=== PATIENT | male | born 1940 | race Two or more races ===

== ENCOUNTER → 2018-08-14 | Emergency (ER) | payer OTHER ==
[~2018-08-14] VITALS: Ht 165.1 cm; Wt 63.5 kg
[~2018-08-14] MED LIST: CARDURA1 MG; CARVEDILOL3.125 MG; CRESTOR40 MG; HYDRODIURIL12.5 MG; LIPITOR40 MG; PLAVIX75 MG; PREVACID 15MG15 MG GT; PROCARDIA90 MG/BLIS; TRICOR145 MG
== END | disposition home or self-care (01) ==
LOC: ER 21:28
DX: R51 Headache (principal)

== ENCOUNTER → 2019-01-11 | Outpatient (CLI) | payer OTHER | END | disposition home or self-care (01) | LOC: NUCLEAR 10:00 | DX: R55 Syncope and collapse (principal) ==

== ENCOUNTER 2019-03-31 16:09 | Emergency (ER) | payer OTHER ==
[~2019-03-31] VITALS: Ht 165.1 cm; Wt 64.4 kg
== END 2019-03-31 21:48 | disposition home or self-care (01) ==
LOC: ER 16:09
DX: J40 Bronchitis, not specified as acute or chronic (principal); J06.9 Acute upper respiratory infection, unspecified

== ENCOUNTER 2020-10-29 08:06 | Emergency (ER) | payer OTHER ==
[~2020-10-29] VITALS: Ht 165.1 cm; Wt 63.5 kg
[2020-10-29] MEDS ORDERED: CHILDREN'S ASPI81 MG (08:21)
== END 2020-10-29 12:51 | disposition home or self-care (01) ==
LOC: ER 08:06
DX: R42 Dizziness and giddiness (principal); M54.2 Cervicalgia; R20.0 Anesthesia of skin

== ENCOUNTER 2022-03-11 07:45 | Outpatient (CLI) | payer OTHER ==
[~2022-03-11 07:45] MED LIST changes: +CHILDREN'S ASPI81 MG
== END 2022-03-11 07:46 | disposition home or self-care (01) ==
LOC: NUCLEAR 07:45
PROVIDERS: ATTEND Internal Medicine
DX: I65.23 Occlusion and stenosis of bilateral carotid arteries (principal)

== ENCOUNTER 2022-10-28 08:45 | Outpatient (CLI) | payer OTHER | END 2022-10-28 08:48 | disposition home or self-care (01) | LOC: SONOGRAMA 08:45 | PROVIDERS: ATTEND Urology | DX: N40.1 Benign prostatic hyperplasia with lower urinary tract symptoms (principal) ==

== ENCOUNTER → 2023-03-16 06:34 | Outpatient (CLI) | payer OTHER ==
[2023-03-16 07:59] LABS: HEMATOCRIT 42.1 % (39.0-48.0); MEAN CELL VOLUME 87.7 fL (80.0-100.00); MEAN CORPUSCULAR HEMOGLOBIN 29.3 pg (27.00-32.0); MEAN CORPUSCULAR HGB CONC 33.4 g/dl (32.0-36.0); PLATELET COUNT 326 K/uL (150-450); RED CELL DISTRIBUTION WIDTH 15.7 % (11.5-14.5)
[2023-03-16 08:33] LABS: CALCIUM 9.5 mg/dL (8.5-10.1); CREATININE SERUM 1.15 mg/dL (0.70-1.30); GFR 61.19; POTASSIUM 4.71 mEq/L (3.5-5.1)
== END | disposition home or self-care (01) ==
LOC: LAB 06:34
PROVIDERS: ATTEND Internal Medicine Cardiovascular Disease
DX: I11.9 Hypertensive heart disease without heart failure (principal)

== ENCOUNTER → 2023-12-05 11:33 | Outpatient (CLI) | payer OTHER ==
[2023-12-05 12:23] LABS: PH,URINE 5.5 (5.0-8.0); URINE APPEARANCE Clear; URINE BILIRRUBIN Negative (NEGATIVE); URINE BLOOD Negative; URINE COLOR Yellow; URINE GLUCOSE Negative (NEGATIVE); URINE KETONE Negative (NEGATIVE); URINE LEUKOCYTE Negative; URINE NITRATE Negative; URINE PROTEIN Negative (NEGATIVE)
[2023-12-05 12:26] LABS: URINE BACTERIA 11.3 uL (0.0-1933); URINE EPITHELIAL CELLS 2.6 uL (0.0-38.8); URINE RBC 7.7 uL (0.0-20.8); URINE WBC 2.3 uL (0.0-23.2)
== END | disposition home or self-care (01) ==
LOC: LAB 11:33
PROVIDERS: ATTEND Specialist
DX: N39.9 Disorder of urinary system, unspecified (principal)

== ENCOUNTER 2023-12-09 13:24 | Outpatient (CLI) | payer OTHER | END 2023-12-09 13:45 | disposition home or self-care (01) | LOC: MRI 13:24 | PROVIDERS: ATTEND Specialist | DX: S73.199A Other sprain of unspecified hip, initial encounter (principal); M24.159 Other articular cartilage disorders, unspecified hip | CPT/HCPCS: 73721 ==

== ENCOUNTER 2025-02-09 11:04 | Inpatient (IN) | payer OTHER ==
[~2025-02-09] VITALS: Ht 165.1 cm; Wt 63.5 kg
[2025-02-09] MEDS ORDERED: ZETIA10 MG PO (11:21)
[2025-02-09] MEDS ORDERED: ELIQUIS2.5 MG PO (11:21)
[2025-02-09] MEDS ORDERED: TOPROL XL25 M1 PO (11:21)
--- NOTE | 2025-02-09 11:21 | NUR ---
PTE. REFIERE DEBILIDAD GENERALIZADA, MAREOS Y NAUSEAS. SE REALIZA EKG Y SE PRESENTA A MEDICO DE TURNO.
--- NOTE | 2025-02-09 13:46 | NUR ---
SE ORIENTA A FAMILIAR SOBRE [place] MEDICO, REFIERE ENTENDER. SE REALIZAN MUESTRAS DE LABORATORIO BAJO MEDIDAS ASEPTICAS. PENDIENTE RE-EVALUACION MEDICA. PACIENTE MANEJADO POR .
[2025-02-09 14:11] LABS: BASO % 0.2 % (0.1-1.2); EOS # 0.03 (0.04-0.54); EOS % 0.2 % (0.7-7.0); LYMPH # 1.06 (1.18-3.74); LYMPH % 8.7 % (19.3-53.1); MEAN PLATELET VOLUME 10.00 fl (9.4-12.4); MONO # 0.86 (0.24-0.82); MONO % 7.1 % (4.7-12.5); NEUT # 10.11 (1.56-6.13); NEUT % 83.4 % (34.0-71.1); RED CELL DISTRIBUTION WIDTH 14.9 % (11.6-14.4)
[2025-02-09 14:24] LABS: URINE APPEARANCE Clear; URINE BILIRRUBIN Negative (NEGATIVE); URINE BLOOD Negative; URINE COLOR Yellow; URINE GLUCOSE Negative (NEGATIVE); URINE KETONE Negative (NEGATIVE); URINE LEUKOCYTE Negative; URINE NITRATE Negative; URINE PROTEIN Negative (NEGATIVE); URINE UROBILINOGEN 0.2 E.U./dl
[2025-02-09 14:25] LABS: URINE BACTERIA 4.7 uL (0.0-1933); URINE EPITHELIAL CELLS 1.5 uL (0.0-38.8); URINE RBC 2.0 uL (0.0-20.8); URINE WBC 2.7 uL (0.0-23.2)
[2025-02-09 14:28] LABS: URINE CAST 0.29 uL (0.0-1.40)
[2025-02-09 14:28] LABS: COVID-19 AG NEGATIVE (NEGATIVE)
[2025-02-09 14:35] LABS: ALT/SGPT 20.0 U/L (12-78); AST/SGOT 13.0 U/L (15-37); BILIRUBIN TOTAL 0.64 mg/dL (0.3-1.2); BUN CREA RATIO 24.0 (7.0-25.0); CREATININE SERUM 1.01 mg/dL (0.70-1.30); GFR 70.72; GLOBULINA 4.1 G/DL (2.4-3.5); GLUCOSE FASTING 123.0 mg/dL (65-100); OSMOLALITY SERUM 290.0 MOSM/KG (275-295)
[2025-02-09] MEDS ORDERED: 0.9 % SODIUM CHLORIDE 500 ML IV ONE (15:15)
[2025-02-09] MEDS ORDERED: 0.9 % SODIUM CHLORIDE 1,000 ML IV SCH (20:00)
[2025-02-09] MEDS ORDERED: ATORVASTATIN CALCIUM 40 MG TABLET PO SCH (20:09)
[2025-02-09] MEDS ORDERED: ACETAMINOPHEN 500 MG GEL..CAP PO PRN (20:15)
[2025-02-09 20:48] VITALS: BP 150/70; O2SAT 100
[2025-02-09 22:00] VITALS: BP 138/77; O2SAT 98
[2025-02-09 22:20] VITALS: O2SAT 94
[2025-02-10] VITALS (8 sets, daily range): BP systolic 113–160; BP diastolic 54–80; O2SAT 90–98
[2025-02-10] MEDS ORDERED: APIXABAN 5 MG TABLET PO SCH ×2 (05:00→17:00)
[2025-02-10] MEDS ORDERED: TAMSULOSIN HCL 0.4 MG CAP PO SCH (09:00)
[2025-02-10] MEDS ORDERED: METOPROLOL SUCCINATE 25 MG TAB.SR.24H PO SCH (09:00)
[2025-02-10] MEDS ORDERED: LISINOPRIL 5 MG TABLET PO SCH (09:00)
[2025-02-10 10:54] LABS: INR 1.07
[2025-02-11] VITALS (8 sets, daily range): BP systolic 132–175; BP diastolic 75–100; O2SAT 95–98
[2025-02-11] MEDS ORDERED: hydrALAZINE HCL 20 MG VIAL IV PRN (16:45)
[2025-02-11] MEDS ORDERED: DOXAZOSIN MESYLATE 2 MG TABLET PO SCH (21:00)
[2025-02-12] VITALS (10 sets, daily range): BP systolic 89–183; BP diastolic 51–93; O2SAT 90–100
[2025-02-13 01:33] VITALS: O2SAT 95
[2025-02-13 02:16] VITALS: BP 158/91; O2SAT 98
[2025-02-13 06:20] LABS: BASO % 0.2 % (0.1-1.2); EOS # 0.29 (0.04-0.54); EOS % 3.1 % (0.7-7.0); LYMPH # 2.00 (1.18-3.74); LYMPH % 21.5 % (19.3-53.1); MEAN PLATELET VOLUME 11.20 fl (9.4-12.4); MONO # 1.20 (0.24-0.82); NEUT # 5.74 (1.56-6.13); NEUT % 61.9 % (34.0-71.1); RED CELL DISTRIBUTION WIDTH 14.7 % (11.6-14.4)
[2025-02-13 06:25] VITALS: O2SAT 94
[2025-02-13 06:25] LABS: MONO % 12.9 % (4.7-12.5)
[2025-02-13 06:47] LABS: ALT/SGPT 22.0 U/L (12-78); AST/SGOT 14.0 U/L (15-37); BILIRUBIN TOTAL 0.65 mg/dL (0.3-1.2); BUN CREA RATIO 20.0 (7.0-25.0); CREATININE SERUM 1.01 mg/dL (0.70-1.30); GFR 70.72; GLOBULINA 2.8 G/DL (2.4-3.5); GLUCOSE FASTING 88.0 mg/dL (65-100); OSMOLALITY SERUM 291.0 MOSM/KG (275-295)
[2025-02-13 07:31] VITALS: O2SAT 94
[2025-02-13] MEDS ORDERED: IRON FUM,PS/FOLIC/BCOMP,C NO.9 1 CAP CAPSULE PO SCH (09:00)
[2025-02-13 09:30] VITALS: BP 160/90
[2025-02-13] MEDS ORDERED: LISINOPRIL 5 MG TABLET PO SCH (12:00)
[2025-02-14] MEDS ORDERED: ATORVASTATIN CALCIUM 40 MG TABLET PO SCH (09:00)
== END 2025-02-13 13:19 | disposition home or self-care (01) | DRG 68 ==
LOC: ER 11:04 → MEDI 20:48
PROVIDERS: General Practice; Preventive Medicine Public Health & General Preventive Medicine; ADMIT Specialist; ATTEND Specialist
PROC: BW28ZZZ Computerized Tomography (CT Scan) of Head (ICD-10-PCS; principal; 2025-02-09)
PROC: B030ZZZ Magnetic Resonance Imaging (MRI) of Brain (ICD-10-PCS; 2025-02-09)
PROC: B246ZZZ Ultrasonography of Right and Left Heart (ICD-10-PCS; 2025-02-09)
PROC: B345ZZZ Ultrasonography of Bilateral Common Carotid Arteries (ICD-10-PCS; 2025-02-09)
PROC: 4A12X4Z Monitoring of Cardiac Electrical Activity, External Approach (ICD-10-PCS; 2025-02-09)
DX: I65.21 Occlusion and stenosis of right carotid artery (principal); I10 Essential (primary) hypertension; E78.49 Other hyperlipidemia; R55 Syncope and collapse; Z95.0 Presence of cardiac pacemaker; Z95.828 Presence of other vascular implants and grafts
CPT/HCPCS: 70551

== ENCOUNTER 2025-04-02 09:04 | Outpatient (CLI) | payer OTHER ==
[~2025-04-02 09:04] MED LIST changes: +ELIQUIS2.5 MG PO; +TOPROL XL25 M1 PO; +ZETIA10 MG PO
== END 2025-04-02 09:08 | disposition home or self-care (01) ==
LOC: TOM 09:04
PROVIDERS: ATTEND Specialist
DX: K57.91 Diverticulosis of intestine, part unspecified, without perforation or abscess with bleeding (principal); K62.5 Hemorrhage of anus and rectum